=== PATIENT | male | born 1955 | race Caucasian/White ===

== ENCOUNTER → 2018-07-03 | Outpatient (REF) | payer MEDICARE ==
[2018-07-03 12:46] LABS: BASO % 0.3 % (0.0-1.0); EOS # 0.1 10^3/uL (0.0-0.50); EOS % 1.8 % (0.0-3.0); HEMATOCRIT 47.5 % (42.0-52.0); HEMOGLOBIN 15.7 g/dl (13.5-17.5); IMMATURE GRANULOCYTE % 0.4 % (0-3.0); LYMPH # 1.8 10^3/uL (1.5-4.5); LYMPH % 26.8 % (24.0-44.0); MEAN CORPUSCULAR HGB CONC 33.1 g/dl (32.0-36.5); MEAN CORPUSCULAR VOLUME 96.7 fl (80.0-96.0); MONO # 0.8 10^3/uL (0.0-0.8); MONO % 11.8 % (0.0-5.0); NEUTROPHILS # 3.9 10^3/uL (1.8-7.7); NEUTROPHILS % 58.9 % (36.0-66.0); PLATELET COUNT, AUTOMATED 247 10^3/uL (150-450); RED BLOOD COUNT 4.91 10^6/uL (4.30-6.10); RED CELL DISTRIBUTION WIDTH 13.2 % (11.5-14.5); WHITE BLOOD COUNT 6.7 10^3/uL (4.0-10.0)
[2018-07-03 12:53] LABS: ALBUMIN 3.8 GM/DL (3.2-5.2); ALBUMIN/GLOBULIN RATIO 1.15 (1.00-1.93); ALKALINE PHOSPHATASE 75 U/L (45-117); ALT/SGPT 29 U/L (12-78); ANION GAP 7 MEQ/L (8-16); AST/SGOT 21 U/L (7-37); BILIRUBIN,TOTAL 0.5 MG/DL (0.2-1.0); BLOOD UREA NITROGEN 10 MG/DL (7-18); CALCIUM LEVEL 9.6 MG/DL (8.8-10.2); CARBON DIOXIDE LEVEL 25 MEQ/L (21-32); CHLORIDE LEVEL 105 MEQ/L (98-107); CHOLESTEROL LEVEL 206 MG/DL (<200); CHOLESTEROL RISK RATIO 4.577 (<5); CREATININE FOR GFR 0.87 MG/DL (0.70-1.30); GLOMERULAR FILTRATION RATE > 60.0 (>49); GLUCOSE, FASTING 118 MG/DL (70-100); HDL CHOLESTEROL 45 MG/DL (>40); LDL CHOLESTEROL 138 MG/DL (<100); NON-HDL-C 161 MG/DL; POTASSIUM SERUM 4.2 MEQ/L (3.5-5.1); PROSTATIC SPECIFIC AG MONITOR 0.7 NG/ML (< 4.0); SODIUM LEVEL 137 MEQ/L (136-145); TESTOSTERONE 576 NG/DL (241-827); TOTAL PROTEIN 7.1 GM/DL (6.4-8.2); TRIGLYCERIDES LEVEL 113 MG/DL (<150)
== END ==
LOC: M LAB REF 11:48
DX: R53.83 Other fatigue (principal); E29.1 Testicular hypofunction; N52.01 Erectile dysfunction due to arterial insufficiency
CPT/HCPCS: 84403

== ENCOUNTER → 2018-11-03 | Outpatient (REF) | payer MEDICARE ==
[2018-11-03 17:24] LABS: HEMOGLOBIN A1c 6.1 %
== END ==
LOC: M LAB REF 16:19
PROVIDERS: ATTEND Family Medicine
DX: Z13.228 Encounter for screening for other metabolic disorders (principal)

== ENCOUNTER → 2019-08-02 | Outpatient (CLI) | payer MEDICARE ==
--- NOTE | 2019-08-02 15:54 | REPVR ---
PROCEDURE INFORMATION: Exam: MR Lumbar Spine Without Contrast. Exam date and time: 08/02/2019 2:42 PM Age: 64 years old Clinical indication: Low back pain; Additional info: Lbp TECHNIQUE: Imaging protocol: Multiplanar magnetic resonance images of the lumbar spine without intravenous contrast. COMPARISON: No relevant prior studies available. FINDINGS: Vertebrae: There is straightening of the normal lumbar lordosis. There is 2 mm of grade 1 anterolisthesis of L4 with respect to L5. There is 3 mm of grade 1 retrolisthesis of L5 with respect to S1. Normal vertebral body alignment is otherwise preserved. Vertebral body heights are within normal limits. There is moderate intervertebral disc space loss at L4/5 and moderate to severe intervertebral disc space loss at L5/S1. Diffuse marrow heterogeneity is suggestive of age-related marrow conversion. An infiltrative process can have a similar appearance. Spinal cord: Conus medullaris terminates at T12/L1. L1-L2: There is shallow disc bulging. There is moderate facet hypertrophy. The spinal canal and neural foramina are patent. L2-L3: There is shallow disc bulging. There is moderate facet hypertrophy. There is mild left neural foraminal narrowing. L3-L4: There is diffuse disc bulging. There is severe facet and ligamentous hypertrophy. There is mild bilateral lateral recess stenosis. There is mild canal stenosis, with a residual diameter of 10 mm. There is moderate bilateral neural foraminal narrowing. L4-L5: There is diffuse disc bulging with a left paracentral/subarticular component. There is moderate facet and ligamentous hypertrophy. There is moderate left lateral recess stenosis. There is moderate canal stenosis with a residual diameter of 7 mm. There is moderate bilateral neural foraminal narrowing. L5-S1: There is diffuse disc bulging/uncovering related to listhesis with a superimposed large left inferior subarticular disc extrusion. This effaces the left lateral recess and displaces the left S1 nerve root. There is mild facet hypertrophy there is mild right and moderate to severe left neural foraminal narrowing. Soft tissues: Unremarkable. Other: There is a right renal cyst. There is a partially imaged, complex appearing structure within the left retroperitoneum not well evaluated. IMPRESSION: 1. Degenerative disc disease and spondylosis. At L5/S1, left subarticular disc extrusion resultant potential compromise of the left S1 nerve root. 2. Complex appearing left retroperitoneal structure, potentially renal in origin. Ultrasound may be of benefit for further characterization Electronically signed by: Yasmeen Rodriguez On 08/02/2019 15:54:09 PM
== END ==
LOC: M RAD 14:31
PROVIDERS: ATTEND Family Medicine
DX: M54.5 Low back pain (principal); M51.36 Other intervertebral disc degeneration, lumbar region; M47.817 Spondylosis without myelopathy or radiculopathy, lumbosacral region; M51.26 Other intervertebral disc displacement, lumbar region; N28.1 Cyst of kidney, acquired

== ENCOUNTER → 2019-08-13 | Outpatient (CLI) | payer MEDICARE ==
--- NOTE | 2019-08-13 09:29 | REP ---
Complete abdominal sonography: History: Renal cyst found on MRI. Findings: Scanning through the right upper quadrant of the abdomen demonstrates normal sized thin-walled gallbladder without evidence of stone or polyp. Common bile duct is normal measuring 0.5 cm in greatest diameter. Pancreas is obscured by abdominal gas. No focal liver lesion is seen. Normal caliber aorta is seen. Renal cortical echogenicity pattern is normal and contours are smooth. There is no evidence of hydronephrosis. There is a 3.0 x 2.1 x 2.2 cm simple cyst in the right kidney corresponding to the MR findings. Right renal dimensions are 10.7 x 5.3 x 6.0 cm. Left kidney measures 12.6 x 6.3 x 5.8 cm. The left kidney contains a 1.3 cm cyst. The spleen is near the range of normal in size 12.5 cm in greatest diameter. No focal lesion. Impression : Simple renal cysts, one in each kidney. Otherwise negative. Electronically Signed by Austin Linder MD 08/13/2019 11:03 A
== END ==
LOC: M RAD 07:39
PROVIDERS: ATTEND Family Medicine
DX: N28.1 Cyst of kidney, acquired (principal)

== ENCOUNTER → 2019-09-24 | Outpatient (CLI) | payer MEDICARE ==
--- NOTE | 2019-09-24 10:28 | REP ---
Clinical: Lung screening. History smoking. Comparison: None Technique: Axial low-dose noncontrast images from the thoracic inlet to the upper abdomen using lung screening technique. Findings: Scattered ground-glass opacities noted in the upper lobes (right greater than left) along with elements of bronchiectasis and scarring. Surgical clips noted in an area of ground-glass opacity in the right upper lobe. No discrete nodule. No pleural effusion. Impression: Presumed chronic and postsurgical changes. No prior examinations are available for comparison. No obvious significant nodule or mass identified. Electronically Signed by Shahbaz Saul MD 09/24/2019 10:18 A
== END ==
LOC: M RAD 09:40
PROVIDERS: ATTEND Family Medicine
DX: Z12.2 Encounter for screening for malignant neoplasm of respiratory organs (principal); Z87.891 Personal history of nicotine dependence

== ENCOUNTER → 2021-04-07 | Outpatient (CLI) | payer MEDICARE ==
--- NOTE | 2021-04-07 15:38 | REP ---
INDICATION: COUGH. COMPARISON: No comparison chest x-ray. Comparison is made with images from chest CT study September 24, 2019. TECHNIQUE: Three views.. FINDINGS: The lungs are well inflated and free of infiltrate. The pleural angles are sharp. The heart size is normal. Pulmonary vasculature is not increased. No significant bony abnormality is seen. There is a granulomatous calcification nodule in the right perihilar region unchanged from the chest CT images. IMPRESSION: No active cardiopulmonary disease. <Electronically signed by Mariano Linder > 04/07/21 [id number]
== END ==
LOC: M PLAIMG 13:32
PROVIDERS: ATTEND Physician Assistant
DX: R05 Cough (principal)

== ENCOUNTER 2021-04-09 21:54 | Emergency (ER) | payer MEDICARE, MEDICAID ==
[~2021-04-09] VITALS: Ht 188 cm; Wt 119.5 kg
[2021-04-09] MEDS ORDERED: ATOR1TAB19 PO (22:18)
[2021-04-09] MEDS ORDERED: PRED20TA PO (22:18)
[2021-04-09] MEDS ORDERED: LISI-898 PO (22:18)
[2021-04-09] MEDS ORDERED: AMOX875T2 PO (22:18)
[2021-04-09] MEDS ORDERED: AMLO1TAB24 PO (22:18)
--- NOTE | 2021-04-09 23:39 | REPVR ---
PROCEDURE INFORMATION: Exam: XR Chest Exam date and time: 04/09/2021 11:08 PM Age: 66 years old Clinical indication: Cough; Additional info: Dyspnea/cough TECHNIQUE: Imaging protocol: XR of the chest. Views: 1 view. COMPARISON: 1. CR Chest, 2 view PA, Lat 2021-04-07 14:36 2. LOW DOSE LUNG SCREENING CT 2019-09-24 09:55 FINDINGS: Limitations: Limited by patient's body habitus. Lungs: No focal airspace consolidation. Pleural spaces: Unremarkable. No pleural effusion. No pneumothorax. Heart/Mediastinum: Unremarkable. No cardiomegaly. Bones/joints: Unremarkable. IMPRESSION: No focal airspace consolidation. Electronically signed by: Jamie Paz On 04/09/2021 23:38:43 PM
[2021-04-10 00:40] LABS: BASO % 0.2 % (0.0-1.0); EOS # 0.1 10^3/uL (0.0-0.5); EOS % 1.1 % (0.0-3.0); HEMATOCRIT 46.1 % (42.0-52.0); HEMOGLOBIN 15.4 g/dl (13.5-17.5); LYMPH # 0.7 10^3/uL (1.5-5.0); LYMPH % 5.5 % (24.0-44.0); MEAN CORPUSCULAR HEMOGLOBIN 32.1 pg (27.0-33.0); MEAN CORPUSCULAR HGB CONC 33.4 g/dl (32.0-36.5); MONO # 0.2 10^3/uL (0.0-0.8); MONO % 1.5 % (2.0-8.0); NEUTROPHILS % 91.1 % (36.0-66.0); PLATELET COUNT, AUTOMATED 262 10^3/uL (150-450); WHITE BLOOD COUNT 12.1 10^3/uL (4.0-10.0)
[2021-04-10 01:09] LABS: ALBUMIN 3.7 GM/DL (3.2-5.2); ALT/SGPT 37 U/L (12-78); BILIRUBIN,DIRECT 0.1 MG/DL (0.0-0.2); BILIRUBIN,TOTAL 0.5 MG/DL (0.2-1.0); BLOOD UREA NITROGEN 13 MG/DL (7-18); CARBON DIOXIDE LEVEL 25 MEQ/L (21-32); CHLORIDE LEVEL 108 MEQ/L (98-107); CPK CREATINE PHOSPHOKINASE 597 U/L (39-308); GLOMERULAR FILTRATION RATE > 60.0 (>49); GLUCOSE, FASTING 137 MG/DL (70-100); MB/CK RELATIVE INDEX 1.01 (< OR =4); POTASSIUM SERUM 4.4 MEQ/L (3.5-5.1); SODIUM LEVEL 138 MEQ/L (136-145); TOTAL PROTEIN 7.1 GM/DL (6.4-8.2); TROPONIN I 0.06 NG/ML (< 0.10)
[2021-04-10] MEDS ORDERED: IPRATROPIUM 0.5MG/ALBUTEROL 2.5MG INH SOL UD 3ML (DUONEB) NEB ONE (02:15)
[2021-04-10 02:31] VITALS: BP 172/80
--- NOTE | 2021-04-10 11:42 | ECGEPIP ---
[facility] - ED Test Date: 2021-04-10 Pat Name: SEBASTIAN LUCIANO Department: Room: - Gender: Male Manager Warehouse: EVITA : 1955 Requested By: RAMÓN Sow Order Number: [id number] Reading MD: Vira Kuhn Measurements Intervals [place] Rate: 78 P: 54 [place]: 172 QRS: 57 QRSD: 94 T: 38 QT: 396 QTc: 451 Interpretive Statements Sinus rhythm with frequent premature ventricular complexes Septal infarct , age undetermined NSTTW abnormalities No prior Electronically Signed on 04-10-2021 11:41:59 EDT by Vira Kuhn
== END 2021-04-10 02:52 | disposition home or self-care (01) ==
LOC: M ED 21:54
DX: J20.9 Acute bronchitis, unspecified (principal); F17.200 Nicotine dependence, unspecified, uncomplicated; Z88.2 Allergy status to sulfonamides; Z88.1 Allergy status to other antibiotic agents; Z88.8 Allergy status to other drugs, medicaments and biological substances

== ENCOUNTER 2021-04-24 01:57 | Emergency (ER) | payer MEDICARE, MEDICAID ==
[~2021-04-24] VITALS: Ht 188 cm; Wt 119.5 kg
[~2021-04-24 01:57] MED LIST: AMLO1TAB24 PO; AMOX875T2 PO; ATOR1TAB19 PO; LISI-898 PO; PRED20TA PO
[2021-04-24] MEDS ORDERED: methylPREDNISolone 125MG 2ML VIAL IV ONE (04:05)
[2021-04-24] MEDS ORDERED: COMBIVENT RESPIMAT 100-20MCG INHALER 4GM INH ONE (04:05)
[2021-04-24 04:11] LABS: BASO % 0.4 % (0.0-1.0); EOS # 0.5 10^3/uL (0.0-0.5); HEMATOCRIT 45.7 % (42.0-52.0); HEMOGLOBIN 15.3 g/dl (13.5-17.5); LYMPH # 1.7 10^3/uL (1.5-5.0); LYMPH % 14.9 % (24.0-44.0); MEAN CORPUSCULAR HEMOGLOBIN 32.1 pg (27.0-33.0); MEAN CORPUSCULAR HGB CONC 33.5 g/dl (32.0-36.5); MONO % 9.2 % (2.0-8.0); NEUTROPHILS # 7.9 10^3/uL (1.5-8.5); NEUTROPHILS % 71.1 % (36.0-66.0); PLATELET COUNT, AUTOMATED 238 10^3/uL (150-450); RED BLOOD COUNT 4.76 10^6/uL (4.30-6.10); WHITE BLOOD COUNT 11.1 10^3/uL (4.0-10.0)
--- NOTE | 2021-04-24 05:42 | ECGEPIP ---
[facility] - ED Test Date: 2021-04-24 Pat Name: SEBASTIAN LUCIANO Department: Room: - Gender: Male It Account Manager: EVITA : 1955 Requested By: SUKHWINDER Tucker Order Number: [id number] Reading MD: Sergio Riggins Measurements Intervals [place] Rate: 77 P: 47 [place]: 144 QRS: 70 QRSD: 106 T: 28 QT: 432 QTc: 488 Interpretive Statements Sinus rhythm with frequent premature ventricular complexes Nonspecific ST abnormality Prolonged QT SIMILAR TO 04/10/21 Electronically Signed on 04-24-2021 5:41:28 EDT by Sergio Riggins
[2021-04-24] MEDS ORDERED: IPRATROPIUM 0.5MG/ALBUTEROL 2.5MG INH SOL UD 3ML (DUONEB) NEB ONE ×2 (05:45→07:05)
--- NOTE | 2021-04-24 05:46 | REPVR ---
PROCEDURE INFORMATION: Exam: XR Chest Exam date and time: 04/24/2021 3:55 AM Age: 66 years old Clinical indication: Other: Dyspnea/cough TECHNIQUE: Imaging protocol: XR of the chest. Views: 1 view. COMPARISON: CR PORTABLE CHEST X-RAY 04/09/2021 11:01 PM FINDINGS: Lungs: Mild nonspecific bilateral perihilar reticulonodular opacities. Pleural spaces: Unremarkable. No pleural effusion. No pneumothorax. Heart/Mediastinum: Unremarkable. No cardiomegaly. Vasculature: Atherosclerotic thoracic aorta. Bones/joints: Unremarkable. IMPRESSION: No significant change. Electronically signed by: Darren Jang On 04/24/2021 05:45:40 AM
[2021-04-24 05:49] LABS: ALBUMIN 3.3 GM/DL (3.2-5.2); ALT/SGPT 37 U/L (12-78); BILIRUBIN,DIRECT 0.2 MG/DL (0.0-0.2); BILIRUBIN,TOTAL 0.7 MG/DL (0.2-1.0); BLOOD UREA NITROGEN 13 MG/DL (7-18); CALCIUM LEVEL 9.1 MG/DL (8.8-10.2); CARBON DIOXIDE LEVEL 26 MEQ/L (21-32); CHLORIDE LEVEL 107 MEQ/L (98-107); CK-MB VALUE MASS 5.2 NG/ML (<3.6); CPK CREATINE PHOSPHOKINASE 343 U/L (39-308); CREATININE FOR GFR 0.81 MG/DL (0.70-1.30); GLOMERULAR FILTRATION RATE > 60.0 (>49); GLUCOSE, FASTING 112 MG/DL (70-100); MB/CK RELATIVE INDEX 1.52 (< OR =4); NT-PRO BNP 701 PG/ML (<125); POTASSIUM SERUM 4.4 MEQ/L (3.5-5.1); SODIUM LEVEL 138 MEQ/L (136-145); TOTAL PROTEIN 6.7 GM/DL (6.4-8.2); TROPONIN I 0.04 NG/ML (< 0.10)
[2021-04-24] MEDS ORDERED: VENTAER INH (06:36)
[2021-04-24] MEDS ORDERED: PRED20TA PO (10:02)
[2021-04-24 10:05] VITALS: BP 163/78
== END 2021-04-24 10:17 | disposition home or self-care (01) ==
LOC: M ED 01:57
DX: J20.9 Acute bronchitis, unspecified (principal); F17.200 Nicotine dependence, unspecified, uncomplicated; Z79.899 Other long term (current) drug therapy; Z88.1 Allergy status to other antibiotic agents; Z88.2 Allergy status to sulfonamides; Z88.8 Allergy status to other drugs, medicaments and biological substances
CPT/HCPCS: 71045; 80048; 80076; 82550; 82553; 83880; 84443; 84484; 85025; 87798; 93005; 93041; 94640; 94760; 96374; 99285; J2930

== ENCOUNTER 2021-05-19 21:18 | Inpatient (IN) | payer MEDICARE, MEDICAID ==
[~2021-05-19] VITALS: Ht 185.4 cm; Wt 117.9 kg
[~2021-05-19 21:18] MED LIST changes: +VENTAER INH
[2021-05-19] MEDS ORDERED: COMBIVENT RESPIMAT 100-20MCG INHALER 4GM INH ONE (21:35)
[2021-05-19 22:11] LABS: BASO % 0.3 % (0.0-1.0); EOS # 0.4 10^3/uL (0.0-0.5); EOS % 4.4 % (0.0-3.0); HEMATOCRIT 43.6 % (42.0-52.0); HEMOGLOBIN 14.4 g/dl (13.5-17.5); LYMPH # 1.8 10^3/uL (1.5-5.0); LYMPH % 19.1 % (24.0-44.0); MEAN CORPUSCULAR HEMOGLOBIN 31.8 pg (27.0-33.0); MEAN CORPUSCULAR VOLUME 96.2 fl (80.0-96.0); MONO # 0.8 10^3/uL (0.0-0.8); MONO % 8.4 % (2.0-8.0); NEUTROPHILS # 6.4 10^3/uL (1.5-8.5); NEUTROPHILS % 67.6 % (36.0-66.0); PLATELET COUNT, AUTOMATED 232 10^3/uL (150-450); RED BLOOD COUNT 4.53 10^6/uL (4.30-6.10); WHITE BLOOD COUNT 9.5 10^3/uL (4.0-10.0)
[2021-05-19 22:35] LABS: BLOOD UREA NITROGEN 10 MG/DL (7-18); CALCIUM LEVEL 8.5 MG/DL (8.8-10.2); CARBON DIOXIDE LEVEL 28 MEQ/L (21-32); CHLORIDE LEVEL 107 MEQ/L (98-107); CREATININE FOR GFR 1.24 MG/DL (0.70-1.30); GLOMERULAR FILTRATION RATE > 60.0 (>49); GLUCOSE, FASTING 125 MG/DL (70-100); POTASSIUM SERUM 3.9 MEQ/L (3.5-5.1); SODIUM LEVEL 140 MEQ/L (136-145)
[2021-05-19] MEDS ORDERED: IPRATROPIUM 0.5MG/ALBUTEROL 2.5MG INH SOL UD 3ML (DUONEB) NEB ONE (23:10)
--- NOTE | 2021-05-19 23:37 | REPVR ---
PROCEDURE INFORMATION: Exam: XR Chest Exam date and time: 05/19/2021 9:53 PM Age: 66 years old Clinical indication: Cough and wheezing; Additional info: SOB and wheezing TECHNIQUE: Imaging protocol: XR of the chest. Views: 1 view. COMPARISON: CR PORTABLE CHEST X-RAY 04/24/2021 3:47 AM FINDINGS: Lungs: Mild pulmonary hyperinflation particularly in view of lordotic projection. There are no interval infiltrates. Pleural spaces: Unremarkable. No pleural effusion. No pneumothorax. Heart/Mediastinum: Unremarkable. No cardiomegaly. Bones/joints: Unremarkable. IMPRESSION: Essentially negative chest with little change from 04/24/2021. No acute interval process is identified. Electronically signed by: Rohit Tarango On 05/19/2021 23:37:00 PM
[2021-05-20] MEDS ORDERED: ACETAMINOPHEN TAB 650MG DOSE (2X325MG) PO PRN (01:30)
[2021-05-20] MEDS ORDERED: methylPREDNISolone 125MG 2ML VIAL IV ONE (01:30)
[2021-05-20] MEDS ORDERED: MAG SULF 1GM/100ML (MAG RUN) 1 GM in IV 1 EA IV ONE (01:30)
[2021-05-20] MEDS ORDERED: ALBUTEROL SULFATE 2.5 MG/0.5 ML INH NEB SOLN NEB PRN (01:30)
[2021-05-20] MEDS ORDERED: MAALOX 30 ML SUSP *UDC PO PRN (01:30)
[2021-05-20] MEDS ORDERED: MOM 30ML SUSPENSION UDC PO PRN (01:30)
[2021-05-20] MEDS ORDERED: PROAAER10 INH (01:35)
[2021-05-20] MEDS ORDERED: HOME MED LIST COMPLETE! XX SCH (01:35)
[2021-05-20] MEDS: IPRATROPIUM 0.5MG/ALBUTEROL 2.5MG INH SOL UD 3ML (DUONEB) NEB SCH ×4 (02:21→20:38)
[2021-05-20 04:03] VITALS: BP 169/88
[2021-05-20] MEDS: ATORVASTATIN 10 MG TAB PO SCH ×2 (04:25→20:39)
[2021-05-20] MEDS: amLODIPine 5 MG TAB PO SCH ×2 (04:26→20:40)
[2021-05-20 06:00] VITALS: BP 131/58
[2021-05-20 06:21] LABS: HEMATOCRIT 43.6 % (42.0-52.0); HEMOGLOBIN 14.3 g/dl (13.5-17.5); MEAN CORPUSCULAR HEMOGLOBIN 31.8 pg (27.0-33.0); MEAN CORPUSCULAR HGB CONC 32.8 g/dl (32.0-36.5); MEAN CORPUSCULAR VOLUME 96.9 fl (80.0-96.0); PLATELET COUNT, AUTOMATED 224 10^3/uL (150-450); WHITE BLOOD COUNT 6.5 10^3/uL (4.0-10.0)
[2021-05-20] MEDS ORDERED: LevoFLOXacin 500 MG TABLET PO ONE (06:25)
--- NOTE | 2021-05-20 06:28 | HPEPDOC ---
[facility] Medical History & Physical Date of Admission May 20, 2021 Date of Service: May 20, 2021 Attending Physician: ISAAC STEWART MD History and Physical TIME OF SERVICE: 515am CHIEF COMPLAINT: dyspnea HISTORY OF PRESENT ILLNESS: has had several bouts of bronchitis; recently he was put on steroids for another episode of acute bronchitis. Two days after he finished the steroids the shortness of breath with wheezing and chest tightness reoccurred. Yesterday his called EMS because he was very short of breath after walking few steps. He denies f/c but has a cough productive of yellow sputum. His PCP has made arrangements for him to have PFTs in the near future. He was treated for presumed COPD in the ER w Combivent and DuoNebs he appeared to improve but shortly after walking to the restroom he became very short of breath and the wheezing reoccurred. REVIEW OF SYSTEMS: 10-point review of systems negative except as listed in HPI PAST MEDICAL/ SURGICAL HISTORY: Unspecified reactive airway disease, essential HTN, DLP, Class 1 Obesity FAMILY HISTORY: His parents , he doesnt know his brothers or daughters health history SOCIAL HISTORY: He has been smoking for 35yrs (has cut down recently) & occasionally drinks alcohol ALLERGIES: Please see below. HOME MEDICATIONS: Please see below. PHYSICAL EXAMINATION: Vital Signs Date Time Temp Pulse Resp B/P (MAP) Pulse Ox O2 Delivery O2 Flow Rate FiO2 05/19/21 21:27 139/84 (102) 05/19/21 21:30 98 20 96 Room Air 05/19/21 22:13 2.0 05/19/21 22:52 98.1 GENERAL APPEARANCE: well-nourished and developed/ NAD HEENT: EOMI / MMM&P CARDIOVASCULAR: RRR/NMRG LUNGS: he is not using accessory muscles / he is coughing/ he becomes short of breath when he sits up for me to examine him / he has inspiratory wheezing ABDOMEN: contour convex / soft & NT w palpation MUSCULOSKELETAL: NCAT / YARY x 4 extremities NEUROLOGICAL: CN 2-12 grossly intact / speech not dysarthric PSYCHIATRIC: A&O x 3 / able to understand and follow all commands LABORATORY DATA: IMAGING: Chest xray IMPRESSION: Essentially negative chest with little change from 04/24/2021. No acute interval process is identified. MICROBIOLOGY: Respiratory panel negative ASSESSMENT: is a 66 yr old w a hx of Unspecified reactive airway disease, HTN, DLP & Obesity who is admitted for acute asthma vs COPD. PLAN: 1 Acute Asthma vs Acute COPD -He is a smoker but also has eosinophilia; he could potentially have Asthma/COPD overlap syndrome Plan: admit to medical floor/ supplemental O2 / continuous pulse oximetry / aspiration precautions / DuoNeb Q6H, Albuterol Q1HP, Prednisone / will give Levofloxacin because he has a cough productive of yellow sputum / Tessalon Pearls / smoking cessation education /the day time team can refer her to Senior Engineering Specialist for repeat PFTs / will place a referral for Pulmonary Rehab which has been shown to reduce exacerbation & mortality if patient attends within 4 weeks of episode of acute COPD / offer influenza vaccine annually 2 Essential HTN Plan: amlodipine & Lisinopril 3 DLP Plan: statin 4 Tobacco Abuse Plan: smoking cessation education 5 Class 1 obesity -complicates care Plan: check A1C DVT px w Lovenox Disposition: home after more than 2 midnights stay Home Medications Scheduled Amlodipine Besylate (Amlodipine Besylate) 5 Mg Tablet, 5 MG PO QHS Atorvastatin Calcium (Atorvastatin Calcium) 10 Mg Tablet, 10 MG PO QHS Lisinopril (Lisinopril) 5 Mg Tablet, 5 MG PO DAILY Scheduled PRN Albuterol Sulfate (Proair Hfa) 8.5 Gm Hfa.aer.ad, 2 PUFF INH Q4H PRN for SHORTNESS OF BREATH Allergies Coded Allergies: Sulfa (Sulfonamide Antibiotics) (Verified Allergy, Intermediate, Hives, 04/24/21) glucosamine (Verified Allergy, Mild, Weakness, 04/24/21) azithromycin (Verified Adverse Reaction, Mild, Hives, 04/24/21) A-FIB/CHADSVASC A-FIB History Current/History of A-Fib/PAF?: No Current PO Anticoag Therapy: No ISAAC STEWART MD May 20, 2021 06:28
[2021-05-20 06:34] LABS: HEMOGLOBIN A1c 5.7 %
[2021-05-20 06:37] LABS: BLOOD UREA NITROGEN 11 MG/DL (7-18); CALCIUM LEVEL 9.1 MG/DL (8.8-10.2); CARBON DIOXIDE LEVEL 25 MEQ/L (21-32); CHLORIDE LEVEL 106 MEQ/L (98-107); CREATININE FOR GFR 1.18 MG/DL (0.70-1.30); GLOMERULAR FILTRATION RATE > 60.0 (>49); GLUCOSE, FASTING 137 MG/DL (70-100); MAGNESIUM LEVEL 2.2 MG/DL (1.8-2.4); POTASSIUM SERUM 4.4 MEQ/L (3.5-5.1); SODIUM LEVEL 141 MEQ/L (136-145)
--- NOTE | 2021-05-20 07:16 | ECGEPIP ---
[facility] - ED Test Date: 2021-05-19 Pat Name: SEBASTIAN LUCIANO Department: Room: [place] [address] Gender: Male Hotel Director: SOPHIE : 1955 Requested By: SEBASTIAN Meyers Order Number: [id number] Reading MD: Sergio Riggins Measurements Intervals [place] Rate: 93 P: 62 [place]: 160 QRS: 49 QRSD: 112 T: 42 QT: 360 QTc: 447 Interpretive Statements Normal sinus rhythm Anteroseptal infarct , age undetermined NSTTW ABNORMALITY(S) SIMILAR TO 04/24/21 Electronically Signed on 05-20-2021 7:16:12 EDT by Sergio Riggins
[2021-05-20] MEDS: PANTOPRAZOLE 40MG TAB (PROTONIX) PO SCH (08:41)
[2021-05-20] MEDS: ENOXAPARIN 40MG/0.4ML SYRINGE (J1650 PER 10MG) SC SCH (08:42)
[2021-05-20] MEDS: lisinopriL 5 MG TAB PO SCH (08:42)
[2021-05-20] MEDS: TIOTROPIUM INHALER/CAPSULE (SPIRIVA) INH SCH (11:38)
[2021-05-20] MEDS: methylPREDNISolone 40MG 1ML VIAL IV SCH (11:42)
[2021-05-20 11:51] VITALS: O2SAT 95
[2021-05-20] MEDS: NICOTINE 7 MG/24 HR TRANSDERMAL TD SCH (12:35)
[2021-05-20 14:00] VITALS: BP 128/57
--- NOTE | 2021-05-20 16:29 | IPNPDOC ---
Date Seen The patient was seen on 05/20/21. Progress Note SUBJECTIVE: Today, Mr. Denney reports improvement in his SOB. He states that he was diagnosed with bronchitis in march 2021, recovered, and since then has had three more episodes of SOB and increased cough. He reports increased sputum as well that he describes as white appearing. This episode started 3 days ago with worsening SOB, cough and sputum production. He reports that he still smokes about 10 cigarettes a day (1/2 pack/day) and this is a decrease from his previous (2-2.5 packs/day) as he is trying to quit. He is not currently on any medications for COPD or asthma and he does not use oxygen at home. Today on exam he reports some wheezing but improved SOB and cough. He also reports that he did experience some nausea in the ER but that has also resolved. He denies fever, chills, night sweats, chest pain, tightness or heaviness, palpitations, dyspnea, N/V/D, dysuria, hematuria. OBJECTIVE PHYSICAL EXAM GENERAL: Pleasant adult male resting in bed in NAD HEENT: NC/AT CV: RRR, w/o m/r/g RESP: Diffuse wheezing appreciated bilaterally. No obvious crackles or ronchi. ABDOMEN: Obese abdomen, non-tender to palpation, BS present and normoacitve EXTREMITIES: No obvious edema, no LE tenderness IMAGING: CXR 1 view 05/19/21 Essentially negative chest with little change from 04/24/2021. No acute process is identified ASSESSMENT AND PLAN: Mr. Denney presented to the ER on 05/19/21 with presenting symptoms of SOB and increased productive cough. He reports three of these episodes since march 2021, after treatment for a dx of bronchitis. He has been smoking cigarettes for ~35 years and has recently cut back to pack/day. His presentation is suspicious for undiagnosed COPD vs asthma with acute exacerbation. He was admitted to the hospitalist service for observation and optimization of medications # SOB likely 2/2 acute exacerbation of COPD vs asthma - Solumedrol IV 75mg x1 in the ER - Does of duoneb x1 and albuterol inhaler x1 given in the ER - Continue duoneb q6h and inhaler prn - Levaquin 250mg qd PO x8d - Spiriva QD at 8am - Discuss and encourage vaccination for flu and pneumonia - Will need to follow up with PCP or pulmonology for PFTs # Tobacco abuse/Nicotine dependence - nicotine patch 7mg - discussion cessation support # DLP - Lipitor 10mg # HTN - Lisinopril 5mg - Amlodipine 5mg # Suspicion of LIANNE - patient has a body habitus suspicious for LIANNE with underlying lung disease also reports waking up from sleep being unable to breathe 1-2x/week - follow up with PCP for evaluation and potential sleep study #DVT prophylaxis -Lovenox VS, I&O, 24H, Fishbone Vital Signs/I&O Vital Signs Date Time Temp Pulse Resp B/P (MAP) Pulse Ox O2 Delivery O2 Flow Rate FiO2 05/20/21 14:00 97.4 74 20 128/57 (80) 93 Room Air 05/19/21 23:45 1.0 I&O- Last 24 Hours up to 6 AM 05/20/21 06:00 Intake Total 100 ml Output Total 500 ml Balance -400 ml Laboratory Data 24H LABS Laboratory Tests 2 05/19/21 21:49: Immature Granulocyte % (Auto) 0.2, Neutrophils (%) (Auto) 67.6H, Lymphocytes (%) (Auto) 19.1L, Monocytes (%) (Auto) 8.4H, Eosinophils (%) (Auto) 4.4H, Basophils (%) (Auto) 0.3, Neutrophils # (Auto) 6.4, Lymphocytes # (Auto) 1.8, Monocytes # (Auto) 0.8, Eosinophils # (Auto) 0.4, Basophils # (Auto) 0.0, Nucleated Red Blood Cells % (auto) 0.0, Anion Gap 5L, Glomerular Filtration Rate > 60.0, Calcium Level 8.5L 05/19/21 22:10: POC Troponin I (Misc) 0.07 05/20/21 05:57: Nucleated Red Blood Cells % (auto) 0.0, Anion Gap 10, Glomerular Filtration Rate > 60.0, Calcium Level 9.1, Estimated Mean Plasma Glucose 117H, Hemoglobin A1c 5.7, Magnesium Level 2.2 CBC/BMP Laboratory Tests 05/19/21 21:49 05/20/21 05:57 Microbiology Microbiology 05/19/21 Respiratory Virus Panel (PCR) (KAREL) - Final, Complete GME ATTESTATION GME ATTESTATION My faculty preceptor for this patient encounter was physically present during the encounter and was fully available. All aspects of the patient interview, examination, medical decision making process, and medical care plan development were reviewed and approved by the faculty preceptor. The faculty preceptor is aware and concurs with the plan as stated in the body of this note and will attest to such by his/her cosignature. Rodney Brown DO May 20, 2021 16:29
[2021-05-20 21:00] VITALS: O2SAT 91
[2021-05-20 22:00] VITALS: BP 125/59
[2021-05-21] MEDS: IPRATROPIUM 0.5MG/ALBUTEROL 2.5MG INH SOL UD 3ML (DUONEB) NEB SCH ×2 (02:46→07:41)
[2021-05-21 06:00] VITALS: BP 118/69
[2021-05-21] MEDS ORDERED: LevoFLOXacin 250 MG TABLET PO SCH (06:00)
[2021-05-21 06:32] LABS: HEMATOCRIT 43.2 % (42.0-52.0); HEMOGLOBIN 14.2 g/dl (13.5-17.5); MEAN CORPUSCULAR HEMOGLOBIN 31.8 pg (27.0-33.0); MEAN CORPUSCULAR HGB CONC 32.9 g/dl (32.0-36.5); MEAN CORPUSCULAR VOLUME 96.6 fl (80.0-96.0); PLATELET COUNT, AUTOMATED 269 10^3/uL (150-450); RED BLOOD COUNT 4.47 10^6/uL (4.30-6.10); WHITE BLOOD COUNT 12.1 10^3/uL (4.0-10.0)
[2021-05-21 06:50] LABS: BLOOD UREA NITROGEN 16 MG/DL (7-18); CALCIUM LEVEL 8.8 MG/DL (8.8-10.2); CARBON DIOXIDE LEVEL 25 MEQ/L (21-32); CHLORIDE LEVEL 106 MEQ/L (98-107); CREATININE FOR GFR 1.17 MG/DL (0.70-1.30); GLOMERULAR FILTRATION RATE > 60.0 (>49); GLUCOSE, FASTING 114 MG/DL (70-100); SODIUM LEVEL 139 MEQ/L (136-145)
[2021-05-21] MEDS: TIOTROPIUM INHALER/CAPSULE (SPIRIVA) INH SCH (07:40)
[2021-05-21 08:00] VITALS: BP 125/73
[2021-05-21 09:00] VITALS: BP 125/73
[2021-05-21] MEDS: lisinopriL 5 MG TAB PO SCH (09:00)
[2021-05-21] MEDS: PANTOPRAZOLE 40MG TAB (PROTONIX) PO SCH (09:01)
[2021-05-21] MEDS: NICOTINE 7 MG/24 HR TRANSDERMAL TD SCH (09:01)
[2021-05-21] MEDS ORDERED: SPIR1CAP INH (09:02)
[2021-05-21] MEDS: methylPREDNISolone 40MG 1ML VIAL IV SCH ×2 (09:02→09:32)
[2021-05-21] MEDS: ENOXAPARIN 40MG/0.4ML SYRINGE (J1650 PER 10MG) SC SCH (09:03)
[2021-05-21 10:14] VITALS: O2SAT 95
[2021-05-21] MEDS ORDERED: PRED20TA PO (10:18)
[2021-05-21] MEDS ORDERED: PROAAER10 INH (11:25)
[2021-05-21] MEDS ORDERED: predniSONE 20 MG TAB PO ONE (12:20)
--- NOTE | 2021-05-21 12:29 | DS.PDOC ---
Discharge Summary General Date of Admission May 20, 2021 at 01:28 Date of Discharge May 21, 2020: Discharge Summary PROCEDURES PERFORMED DURING STAY: None ADMITTING DIAGNOSES: SOB likely 2/2 acute exacerbation of COPD vs asthma Tobacco/Nicotine dependence DLP HTN Suspicion for LIANNE DISCHARGE DIAGNOSES: COPD exacerbation tobacco/Nicotine dependence DLP HTN Suspicion for LIANNE COMPLICATIONS/CHIEF COMPLAINT: SOB HISTORY OF PRESENT ILLNESS: This is a 66 year old man with a history of an unspecified reactive airway disease, essential HTN, DLP and class 1 obesity who presented to the [facility] on 05/20 with CC of SOB x3d. The SOB has been getting progressively worse over the past three days and on the day of presentation he was having trouble breathing after walking only a few steps and his called EMS for assistance. He did also report an increase in cough and yellow sputum production. He reports no fever or chills. He had a previous dx and treatment for suspected bronchitis in march of 2021 and since then has had three episodes of feeling like he cant breathe. He has seen his PCP for these episodes and is awaiting referral to a collection agent for PFTs. He is a current every day smoker (1/2 pack) which is a decrease from his previous 2-2.5 packs/day x ~35 years. In the emergency room he was given one dose of solumedrol IV 75mg, duoneb x1, and albuterol inhaler x1. He was admitted to the hospitalist service for observation and initiation/optimization of his medications. HOSPITAL COURSE: Patient is a chronic smoker however was never formally diagnosed with COPD. P atient has never been to a pulmonary physician and has never had a formal PFT. Patient only has a rescue inhaler which she uses as needed however this time prior to hospitalization his inhalers did not resolve his progressive shortness of breath. During this hospitalization patient had diffuse wheezing and was started on IV Solu-Medrol 40 mg daily. Patient did not require any supplemental oxygenation and was able to sat above 90% on room air the entirety of his hospitalization. He was started on Spiriva with DuoNeb's and rescue inhaler with much improvement in his shortness of breath. Patient instructed to follow- up with his PCP as well as referred to pulmonary for optimization of his i nhalers as well as for formal PFT to rule out other obstructive lung processes. He was started on Levaquin during hospitalization for empiric coverage for CAP however he did not have any leukocytosis and was afebrile. Upon discharge patient wheezing improved significantly and was satting above 92% on room air. His white count increased secondary to steroids. He continues to deny any fever or shaking chills and has been afebrile during the entirety of his hospitalization. Patient instructed to follow-up with his PCP as well as pulmonary within 7 days of hospital discharge. He was instructed on how to use his inhalers and to be compliant with his medications. He was also instructed that if his symptoms present again and/or worsen to present back to the nearest ER. DISCHARGE MEDICATIONS: Please see below. ALLERGIES: Please see below. PHYSICAL EXAMINATION ON DISCHARGE: VITAL SIGNS: Please see below. GENERAL: The patient is a well-developed, well-nourished in no apparent distress. AAOx3 NEURO: No focal neurological deficits HEENT: Head is normocephalic and atraumatic. Extraocular muscles are intact. Pupils are equal, round, and reactive to light and accommodation. Nares appears normal. Moist mucous membranes. PULM: Clear to auscultation bilaterally. No wheezing, rhonchi or rales appreciated. CARDIO: Normal S1, S2. no significant murmurs, gallops, rubs or clicks. No signs of peripheral edema ABDOMEN: Soft, nontender, and nondistended. Normal bowel sounds. No significant organomegaly appreciated. EXTREMITIES: No cyanosis, clubbing, rash, lesions. PSYCH: Appropriate mood and flat LABORATORY DATA: Please see below. IMAGING: CXR 1 view 05/19/21 IMPRESSION: Essentially negative chest with little change from 04/24/2021. No acute process is identified PROGNOSIS: Fair ACTIVITY: As tolerated DIET: 2gm sodium restriction diet DISCHARGE PLAN: To home DISPOSITION: Discharge to home DISCHARGE INSTRUCTIONS: Please be compliant with spiriva inhaler, 1 inhalation daily at 0800 Please be compliant with albuterol inhaler 2.5mg 1 neb q1h as needed for shortness of breath as well as other home meds Please take prednisone 40mg PO daily for the next 3 days for a total of 5 day course If symptoms should return or worsen, please report back to the nearest ER DISCHARGE CONDITION: Stable TIME SPENT ON DISCHARGE: Greater than 30 minutes. Vital Signs/I&Os Vital Signs Date Time Temp Pulse Resp B/P (MAP) Pulse Ox O2 Delivery O2 Flow Rate FiO2 05/21/21 10:14 95 Room Air 05/21/21 09:00 125/73 05/21/21 08:00 97.7 70 20 05/21/21 06:00 0.5 I&O- Last 24 Hours up to 6 AM 05/21/21 06:00 Intake Total 3485 ml Output Total 500 ml Balance 2985 ml Laboratory Data Labs 24H Laboratory Tests 2 05/21/21 05:52: Nucleated Red Blood Cells % (auto) 0.0, Anion Gap 8, Glomerular Filtration Rate > 60.0, Calcium Level 8.8 CBC/BMP Laboratory Tests 05/21/21 05:52 Microbiology Microbiology 05/19/21 Respiratory Virus Panel (PCR) (KAREL) - Final, Complete Discharge Medications Scheduled Amlodipine Besylate (Amlodipine Besylate) 5 Mg Tablet, 5 MG PO QHS, (Reported) Atorvastatin Calcium (Atorvastatin Calcium) 10 Mg Tablet, 10 MG PO QHS, (Reported) Lisinopril (Lisinopril) 5 Mg Tablet, 5 MG PO DAILY, (Reported) Prednisone (Prednisone) 20 Mg Tablet, 40 MG PO DAILY Tiotropium [place] (Spiriva) 18 Mcg Cap.w.dev, 1 CAP INH DAILY Scheduled PRN Albuterol Sulfate (Proair Hfa) 8.5 Gm Hfa.aer.ad, 2 PUFF INH Q4H PRN for SHORTNESS OF BREATH, (Reported) Albuterol Sulfate (Proair Hfa) 8.5 Gm Hfa.aer.ad, 2 PUFF INH Q4-6HP PRN for wheezing Allergies Coded Allergies: Sulfa (Sulfonamide Antibiotics) (Verified Allergy, Intermediate, Hives, 04/24/21) glucosamine (Verified Allergy, Mild, Weakness, 04/24/21) azithromycin (Verified Adverse Reaction, Mild, Hives, 04/24/21) GME ATTESTATION GME ATTESTATION My faculty preceptor for this patient encounter was physically present during the encounter and was fully available. All aspects of the patient interview, examination, medical decision making process, and medical care plan development were reviewed and approved by the faculty preceptor. The faculty preceptor is aware and concurs with the plan as stated in the body of this note and will attest to such by his/her cosignature. Jennifer Farooq DO May 21, 2021 12:29
[2021-05-22] MEDS ORDERED: predniSONE 20 MG TAB PO SCH (09:00)
== END 2021-05-21 13:28 | disposition home or self-care (01) | DRG 192 ==
LOC: M ED 21:18 → M ED INP 05-20 01:28 → M MSPAV 05-20 04:03
PROVIDERS: ADMIT Internal Medicine; ATTEND Internal Medicine
DX: J44.1 Chronic obstructive pulmonary disease with (acute) exacerbation (principal); F17.210 Nicotine dependence, cigarettes, uncomplicated; E78.5 Hyperlipidemia, unspecified; I10 Essential (primary) hypertension; G47.33 Obstructive sleep apnea (adult) (pediatric); E66.9 Obesity, unspecified; Z79.899 Other long term (current) drug therapy; Z88.2 Allergy status to sulfonamides; Z88.1 Allergy status to other antibiotic agents; Z88.8 Allergy status to other drugs, medicaments and biological substances; Z20.822 Contact with and (suspected) exposure to COVID-19